=== PATIENT | male | born 1950 | race American Indian/Alaskan Native ===

== ENCOUNTER 2019-07-18 21:15 | Emergency (ER) | payer MEDICARE, OTHER ==
[2019-07-18] MEDS ORDERED: Nitroglycerin 0.4 MG Tab.SL SL ONE (21:22)
[2019-07-18] MEDS ORDERED: Nitroglycerin 0.4 MG Tab.SL ONE (21:23)
[2019-07-18 22:05] LABS: ANION GAP 12.4; CHLORIDE,CL 103 mmol/L (101-111); SODIUM,NA 135 mmol/L (135-145)
--- NOTE | 2019-07-18 22:29 | EDM.PDOC ---
ED HPI GENERAL MEDICAL PROBLEM - General Chief Complaint: Chest Pain Stated Complaint: AMBULANCE Time Seen by Provider: 07/18/19 21:20 Source of Information: Reports: Patient, EMS, RN History Limitations: Reports: No Limitations - History of Present Illness INITIAL COMMENTS - FREE TEXT/NARRATIVE: ED with c/o chest pain intermittent sharp stabbing mid left chest lasts about one minute and goes away. No nausea or vomiting. No fever chills or sweats. Has been hunting today. States no difference in activity than usual. Some belching earlier. Family here note he ate a twinkie earlier and always gives him indigestion. Diabetic blood sugars 110's. No hx of DE or stents. Pain not related to activity, No pain with inspiration. Nitro given x 1 enroute by EMS. States made no difference. Rated 3/10 at worst Pain free at present. Left Chest Pain Score (Numeric/FACES): 3 - Related Data Allergies Allergy/AdvReac Type Severity Reaction Status Date / Time No Known Allergies Allergy Verified 07/18/19 21:52 Home Meds: Home Meds Aspirin [Ken Chewable] 81 mg PO DAILY 12/23/13 [History] Insulin Detemir [Levemir] 25 units SQ BEDTIME 12/23/13 [History] Lisinopril [Prinivil] 40 mg PO DAILY 12/23/13 [History] Gabapentin [Neurontin] 100 mg PO TID 08/09/18 [History] Insulin Detemir [Levemir Flextouch] 60 units SQ ACBREAKFAST 08/09/18 [History] Metoprolol Succinate [Toprol Xl] 50 mg PO DAILY 08/09/18 [History] Omeprazole 20 mg PO DAILY 08/09/18 [History] Pioglitazone [Actos] 30 mg PO DAILY 08/09/18 [History] Terazosin [Hytrin] 1 mg PO DAILY 08/09/18 [History] atorvaSTATin [Lipitor] 10 mg PO BEDTIME 08/09/18 [History] metFORMIN HCl [Metformin HCl] 1,000 mg PO BID 08/09/18 [History] Alogliptin Benzoate [Alogliptin] 25 mg PO DAILY 07/18/19 [History] Past Medical History HEENT History: Reports: Cataract Cardiovascular History: Reports: High Cholesterol, Hypertension Respiratory History: Reports: None Gastrointestinal History: Reports: GERD Genitourinary History: Reports: None Musculoskeletal History: Reports: None Neurological History: Reports: Neuropathy, Diabetic Psychiatric History: Reports: None Endocrine/Metabolic History: Reports: Diabetes, Type II Hematologic History: Reports: None Immunologic History: Reports: None Oncologic (Cancer) History: Reports: None Dermatologic History: Reports: None - Infectious Disease History Infectious Disease History: Reports: Chicken Pox - Past Surgical History HEENT Surgical History: Reports: Cataract Surgery GI Surgical History: Reports: Cholecystectomy Social & Family History - Tobacco Use Smoking Status *Q: Never Smoker - Caffeine Use Caffeine Use: Reports: Coffee, Soda, Tea - Recreational Drug Use Recreational Drug Use: No - Living Situation & Occupation Living situation: Reports: with Family ED ROS GENERAL - Review of Systems Review Of Systems: Comprehensive ROS is negative, except as noted in HPI. ED EXAM, GENERAL - Physical Exam Exam: See Below Exam Limited By: No Limitations General Appearance: Alert, No Apparent Distress Eye Exam: Bilateral Eye: EOMI Ears: Hearing Grossly Normal Nose: Normal Inspection Throat/Mouth: Normal Inspection Head: Atraumatic, Normocephalic Neck: Normal Inspection Respiratory/Chest: No Respiratory Distress, Lungs Clear, Normal Breath Sounds Cardiovascular: Normal Peripheral Pulses, Regular Rate, Rhythm, No Edema, No JVD , No Murmur GI/Abdominal: Normal Bowel Sounds, Soft, Non-Tender Back Exam: Full Range of Motion Extremities: Normal Inspection Neurological: Alert, Oriented, Normal Cognition, No Motor/Sensory Deficits Psychiatric: Normal Affect, Normal Mood Skin Exam: Warm, Dry, Intact, Normal Color Course - Vital Signs Last Recorded V/S: Last Vital Signs Temp 97.2 F 07/18/19 21:16 Pulse 67 07/18/19 21:16 Resp 24 H 07/18/19 21:16 BP 177/66 H 07/18/19 21:16 Pulse Ox 98 07/18/19 21:16 - Orders/Labs/Meds Labs: Laboratory Tests 07/18/19 07/18/19 07/18/19 Range/Units 21:35 21:35 21:35 WBC 7.9 (5.0-10.0) 10^3/uL RBC 4.04 L (4.6-6.2) 10^6/uL Hgb 11.6 L D (14.0-18.0) g/dL Hct 34.1 L (40.0-54.0) % MCV 84.4 (80-100) fL MCH 28.7 (27.0-34.0) pg MCHC 34.0 (33.0-35.0) g/dL Plt Count 218 (150-450) 10^3/uL Neut % (Auto) 62.0 (42.2-75.2) % Lymph % (Auto) 26.7 (20.5-50.1) % [place] % (Auto) 7.0 (2-8) % Eos % (Auto) 3.7 H (1.0-3.0) % Baso % (Auto) 0.6 (0.0-1.0) % Sodium 135 (135-145) mmol/L Potassium 4.4 (3.6-5.0) mmol/L Chloride 103 (101-111) mmol/L Carbon Dioxide 24.0 (21.0-31.0) mmol/L Anion Gap 12.4 BUN 16 (7-18) mg/dL Creatinine 1.2 (0.6-1.3) mg/dL Est Cr Clr Drug Dosing 61.01 mL/min Estimated GFR (MDRD) 60 BUN/Creatinine Ratio 13.33 Glucose 213 H (74-105) mg/dL Calcium 8.6 (8.4-10.2) mg/dl Magnesium 1.6 L (1.8-2.5) mg/dL Total Bilirubin 0.4 (0.2-1.0) mg/dL AST 18 (10-42) IU/L ALT 18 (10-60) IU/L Alkaline Phosphatase 87 (42-121) IU/L CK-MB (CK-2) 2.10 (0.4-4.7) ng/mL Troponin I < 0.02 (0.00-0.02) ng/ml Total Protein 6.7 (6.7-8.2) g/dl Albumin 3.5 (3.2-5.5) g/dl Globulin 3.2 Albumin/Globulin Ratio 1.09 Amylase 31 (28-100) U/L Lipase 28 (22-51) U/L Meds: Medications Discontinued Medications Generic Name Dose Route Start Last Admin Trade Name Freq PRN Reason Stop Dose Admin Nitroglycerin 0.4 mg 07/18/19 21:22 Nitrostat SL 07/18/19 21:23 ONETIME ONE Nitroglycerin Confirm 07/18/19 21:23 Nitrostat Administered 07/18/19 21:24 Dose 0.4 mg .ROUTE .STK-MED ONE Departure - Departure Time of Disposition: 22:29 Disposition: Home, Self-Care 01 Condition: Good Clinical Impression: Hyperglycemia, Hypomagnesemia Gastroesophageal reflux disease Qualifiers: Esophagitis presence: without esophagitis Qualified Code(s): K21.9 - Gastro- esophageal reflux disease without esophagitis Instructions: Food Choices for Gastroesophageal Reflux Disease, Adult, Easy-to- Read, Nonspecific Chest Pain, [id number] Forms: ED Department Discharge Additional Instructions: bland low fat diet clinic follow up this week Urgent follow up recurrent chest pain with nausea, sweats, or Shortness of breath or aggravated by activity continue home medication
== END 2019-07-18 22:45 | disposition home or self-care (01) ==
LOC: DL.ED 21:15
DX: K21.9 Gastro-esophageal reflux disease without esophagitis (principal); E11.65 Type 2 diabetes mellitus with hyperglycemia; E83.42 Hypomagnesemia; I10 Essential (primary) hypertension; E11.40 Type 2 diabetes mellitus with diabetic neuropathy, unspecified; Z79.82 Long term (current) use of aspirin; Z79.4 Long term (current) use of insulin; Z79.899 Other long term (current) drug therapy
CPT/HCPCS: 36415; 71045; 80053; 82150; 82553; 83690; 83735; 84484; 85025; 93005; 99283; 99285-25

== ENCOUNTER 2021-05-13 13:42 | Emergency (ER) | payer MEDICARE, OTHER | END 2021-05-13 14:10 | disposition left against medical advice (07) | LOC: DL.ED 13:42 | DX: Z53.21 Procedure and treatment not carried out due to patient leaving prior to being seen by health care provider (principal) ==

== ENCOUNTER 2021-06-01 15:03 | Emergency (ER) | payer MEDICARE, OTHER ==
--- NOTE | 2021-06-01 15:30 | EDM.PDOC ---
ED HPI GENERAL MEDICAL PROBLEM - General Stated Complaint: SPLK - AMBULANCE Time Seen by Provider: 06/01/21 15:25 Source of Information: Reports: Patient, EMS, RN, RN Notes Reviewed History Limitations: Reports: No Limitations - History of Present Illness INITIAL COMMENTS - FREE TEXT/NARRATIVE: Raya is a 70 y/o male who presents to the ED via [facility] with complaints of pre-syncope. Per EMS report, the patient was found laying on the floor by his son. He denies loss of consciousness and did not strike his head, he states he just felt weak. The patient was diagnosed with COVID-19 two weeks ago following symptoms of cough. Currently he notes cough, nausea, two bouts of emesis today, and one bout of diarrhea. He denies fever, shaking chills, vision changes, dizziness, chest pain/pressure, palpitations, abdominal pain, hematemesis, dysuria, hematuria, melena, or hematochezia. The patient denies tobacco, alcohol, or recreational drug use. - Related Data Allergies Allergy/AdvReac Type Severity Reaction Status Date / Time No Known Allergies Allergy Verified 06/02/21 11:38 Home Meds: Home Meds Insulin Detemir [Levemir] 10 units SQ BEDTIME 12/23/13 [History] lisinopriL [Prinivil] 40 mg PO DAILY 12/23/13 [History] Gabapentin [Neurontin] 100 mg PO TID 08/09/18 [History] Insulin Detemir [Levemir Flextouch] 60 units SQ ACBREAKFAST 08/09/18 [History] Metoprolol Succinate [Toprol Xl] 50 mg PO DAILY 08/09/18 [History] Omeprazole 20 mg PO DAILY 08/09/18 [History] Pioglitazone [Actos] 30 mg PO DAILY 08/09/18 [History] atorvaSTATin [Lipitor] 10 mg PO BEDTIME 08/09/18 [History] metFORMIN HCl [Metformin HCl] 1,000 mg PO BID 08/09/18 [History] Alogliptin Benzoate [Alogliptin] 25 mg PO DAILY 07/18/19 [History] Amoxicillin/Clavulanate K [Augmentin 875-125 MG] 1 tab PO BID 06/02/21 [History] Aspirin [Aspirin EC] 81 mg PO DAILY 06/02/21 [History] Azithromycin [Zithromax] 250 mg PO DAILY 06/02/21 [History] Empagliflozin [Jardiance] 10 mg PO .MORNING 06/02/21 [History] Semaglutide [Ozempic] 0.5 mg SQ .WEEKLY 06/02/21 [History] amLODIPine Besylate [Amlodipine Besylate] 10 mg PO DAILY 06/02/21 [History] Past Medical History HEENT History: Reports: Cataract Cardiovascular History: Reports: High Cholesterol, Hypertension Respiratory History: Reports: None Gastrointestinal History: Reports: GERD Genitourinary History: Reports: None Musculoskeletal History: Reports: None Neurological History: Reports: Neuropathy, Diabetic Psychiatric History: Reports: None Endocrine/Metabolic History: Reports: Diabetes, Type II Hematologic History: Reports: None Immunologic History: Reports: None Oncologic (Cancer) History: Reports: None Dermatologic History: Reports: None - Infectious Disease History Infectious Disease History: Reports: Chicken Pox - Past Surgical History HEENT Surgical History: Reports: Cataract Surgery GI Surgical History: Reports: Cholecystectomy Social & Family History - Caffeine Use Caffeine Use: Reports: Coffee, Soda, Tea - Living Situation & Occupation Living situation: Reports: with Family ED ROS GENERAL - Review of Systems Review Of Systems: Comprehensive ROS is negative, except as noted in HPI. ED EXAM, GENERAL - Physical Exam Exam: See Below Exam Limited By: No Limitations General Appearance: Alert Eye Exam: Bilateral Eye: EOMI, Normal Inspection, PERRL (3mm) Ears: Normal External Exam Ear Exam: Bilateral Ear: Auricle Normal, Canal Normal, TM normal Nose: Normal Inspection, Normal Mucosa, No Blood Throat/Mouth: Normal Voice, No Airway Compromise. No: Normal Inspection, Normal Oropharynx (Dry mucous membranes) Head: Atraumatic, Normocephalic Neck: Normal Inspection, Supple, Non-Tender, Full Range of Motion. No: Lymphadenopathy (L), Lymphadenopathy (R) Respiratory/Chest: No Respiratory Distress, Rales (To right), Accessory Muscle Use. No: Chest Non-Tender (With deep inspiration), Crackles, Rhonchi, Wheezing, Stridor Cardiovascular: Normal Peripheral Pulses, Regular Rate, Rhythm, No Edema, No Gallop, No JVD, No Murmur, No Rub Peripheral Pulses: 2+: Radial (L), Radial (R) GI/Abdominal: Normal Bowel Sounds, Soft, Non-Tender, No Distention, No Abnormal Bruit, No Mass, Pelvis Stable (Male) Exam: Deferred Rectal (Males) Exam: Deferred Back Exam: Normal Inspection, Full Range of Motion Extremities: Normal Inspection, Normal Range of Motion, Normal Capillary Refill Neurological: Alert, Oriented, CN II-XII Intact, Normal Cognition, Normal Gait, No Motor/Sensory Deficits Psychiatric: Normal Affect, Normal Mood Skin Exam: Warm, Dry, Intact, Normal Color, No Rash. No: Cyanosis, Jaundice, Mottled, Pallor #1 Interpretation EKG Date: 06/01/21 Time: 15:09 Rhythm: Other (Sinus Tachycardia) Rate (Beats/Min): 101 [place]: LAD-Left [place] Deviation P-Wave: Present QRS: RBBB ST-T: Normal QT: Normal AR/PQ Interval: 0.131 Comparison: No Change EKG Interpretation Comments: ST; RBBB; LAD; No evidence of acute myocardial ischemia Course - Vital Signs Last Recorded V/S: Last Vital Signs Temp 98.0 F 06/01/21 14:52 Pulse 97 06/01/21 14:52 Resp 22 H 06/01/21 14:52 BP 115/57 L 06/01/21 14:52 Pulse Ox 97 06/01/21 14:52 - Orders/Labs/Meds Labs: Laboratory Tests 06/01/21 06/01/21 06/01/21 Range/Units 15:20 15:20 15:20 WBC 17.8 H (5.0-10.0) 10^3/uL RBC 4.15 L (4.6-6.2) 10^6/uL Hgb 12.1 L (14.0-18.0) g/dL Hct 36.3 L (40.0-54.0) % MCV 87.5 D (80-100) fL MCH 29.2 (27.0-34.0) pg MCHC 33.3 (33.0-35.0) g/dL Plt Count 275 (150-450) 10^3/uL Neut % (Auto) 90.4 H (42.2-75.2) % Lymph % (Auto) 3.7 L (20.5-50.1) % [place] % (Auto) 5.6 (2-8) % Eos % (Auto) 0.2 L (1.0-3.0) % Baso % (Auto) 0.1 (0.0-1.0) % PT 11.0 (9.0-12.0) SEC INR 1.1 (0.9-1.2) APTT 21.6 L (22.0-34.0) SEC D-Dimer, Quantitative 1020 H (0-400) ng/mL Sodium 143 (136-145) mmol/L Potassium 3.8 (3.5-5.1) mmol/L Chloride 106 (98-107) mmol/L Carbon Dioxide 25 (21-32) mmol/L Anion Gap 15.8 H (7-13) mEq/L BUN 28 H (7-18) mg/dL Creatinine 1.55 H (0.70-1.30) mg/dL Est Cr Clr Drug Dosing 43.08 mL/min Estimated GFR (MDRD) 44 BUN/Creatinine Ratio 18.1 (No establ ref range) Glucose 119 H (70-99) mg/dL POC Glucose (70-99) mg/dL Lactic Acid (0.4-2.0) mmol/L Calcium 8.4 L (8.5-10.1) mg/dL Magnesium 1.8 (1.8-2.4) mg/dL Total Bilirubin 0.3 (0.2-1.0) mg/dL AST 18 (15-37) U/L ALT 28 (16-63) U/L Alkaline Phosphatase 101 (46-116) U/L Troponin I High Sens 7 (<=76) pg/mL C-Reactive Protein < 0.2 (0.0-0.9) mg/dL B-Natriuretic Peptide 21 (0-100) pg/ml Total Protein 7.4 (6.4-8.2) g/dL Albumin 3.5 (3.4-5.0) g/dL Globulin 3.9 Albumin/Globulin Ratio 0.9 Ethyl Alcohol < 3 (0) mg/dL 06/01/21 06/01/21 06/01/21 Range/Units 15:20 15:27 18:30 WBC (5.0-10.0) 10^3/uL RBC (4.6-6.2) 10^6/uL Hgb (14.0-18.0) g/dL Hct (40.0-54.0) % MCV (80-100) fL MCH (27.0-34.0) pg MCHC (33.0-35.0) g/dL Plt Count (150-450) 10^3/uL Neut % (Auto) (42.2-75.2) % Lymph % (Auto) (20.5-50.1) % [place] % (Auto) (2-8) % Eos % (Auto) (1.0-3.0) % Baso % (Auto) (0.0-1.0) % PT (9.0-12.0) SEC INR (0.9-1.2) APTT (22.0-34.0) SEC D-Dimer, Quantitative (0-400) ng/mL Sodium (136-145) mmol/L Potassium (3.5-5.1) mmol/L Chloride (98-107) mmol/L Carbon Dioxide (21-32) mmol/L Anion Gap (7-13) mEq/L BUN (7-18) mg/dL Creatinine (0.70-1.30) mg/dL Est Cr Clr Drug Dosing mL/min Estimated GFR (MDRD) BUN/Creatinine Ratio (No establ ref range) Glucose (70-99) mg/dL POC Glucose 109 H (70-99) mg/dL Lactic Acid 2.1 H* 1.5 (0.4-2.0) mmol/L Calcium (8.5-10.1) mg/dL Magnesium (1.8-2.4) mg/dL Total Bilirubin (0.2-1.0) mg/dL AST (15-37) U/L ALT (16-63) U/L Alkaline Phosphatase (46-116) U/L Troponin I High Sens (<=76) pg/mL C-Reactive Protein (0.0-0.9) mg/dL B-Natriuretic Peptide (0-100) pg/ml Total Protein (6.4-8.2) g/dL Albumin (3.4-5.0) g/dL Globulin Albumin/Globulin Ratio Ethyl Alcohol (0) mg/dL Meds: Medications Discontinued Medications Generic Name Dose Route Start Last Admin Trade Name Freq PRN Reason Stop Dose Admin Ceftriaxone Sodium 1 gm/ 50 mls @ 100 mls/hr 06/01/21 16:38 06/01/21 17:32 Sodium Chloride IV 06/01/21 17:07 100 mls/hr ONETIME ONE Administration Lactated Ringer's 1,000 mls @ 999 mls/hr 06/01/21 17:17 06/01/21 17:32 Ringers, Lactated IV 06/01/21 18:17 999 mls/hr .BOLUS ONE Administration Iopamidol 100 ml 06/01/21 17:35 06/01/21 17:50 Iopamidol 755 Mg/Ml 100 Ml Bottle IVPUSH 06/01/21 17:36 100 ml ONETIME ONE Administration - Radiology Interpretation Free Text/Narrative:: [facility] Final Radiology Report Call: [phone] assistance Online chat: [email or web address] Name: RAYA SALDIVAR Age: 70Years M Date: 06/01/2021 SSN: -- : [id number] Study: CR CHEST 1V FRONTAL Requesting Physician: Devorah Hennessy Images: 1 Addl Studies: Provided Clinical History: cough Contrast: Contrast Medium: Contrast Amount: Contrast Method: CONFIDENTIALITY STATEMENT This report is intended only for use by the referring physician, and only in accordance with law. If you received this in error, call [phone]. Page 1 of 1 PROCEDURE INFORMATION: Exam: XR Chest Exam date and time: 06/01/2021 4:01 PM Age: 70 years old Clinical indication: Other: Covid + 3 weeks ago; Additional info: Cough TECHNIQUE: Imaging protocol: XR of the chest. Views: 1 view. COMPARISON: CR Chest 1V Frontal 07/18/2019 9:54 PM FINDINGS: Lungs: Right lower lobe consolidation. Lungs otherwise clear. Pleural spaces: Unremarkable. No pleural effusion. No pneumothorax. Heart/Mediastinum: Unremarkable. No cardiomegaly. Bones/joints: Unremarkable. IMPRESSION: Right lower lobe pneumonia. Thank you for allowing us to participate in the care of your patient. Dictated and Authenticated by: Ken Valencia MD 06/01/2021 4:30 PM Central Time ([place] & [place]) [facility] Final Radiology Report Call: [phone] assistance Online chat: [email or web address] Name: RAYA SALDIVAR Age: 70Years M Date: 06/01/2021 SSN: -- : 1950 Study: CT CHEST W CONT Requesting Physician: Devorah Hennessy Images: [phone] Addl Studies: Provided Clinical History: r/o PE; COVID + two weeks ago; Ddimer 1100+ Contrast: With Contrast Medium: Contrast Amount: 76 mL Contrast Method: Intravenous (IV) Page 1 of 2 PROCEDURE INFORMATION: Exam: CT Chest With Contrast; Diagnostic Exam date and time: 06/01/2021 6:09 PM Age: 70 years old Clinical indication: Other: Pre-syncope, left anterior chest pain wiyh inspiration--wbc 17.8; Additional info: R/O pe; Covid + two weeks ago; Ddimer 1100+ TECHNIQUE: Imaging protocol: Diagnostic computed tomography of the chest with contrast. Radiation optimization: All CT scans at this facility use at least one of these dose optimization techniques: automated exposure control; mA and/or kV adjustment per patient size (includes targeted exams where dose is matched to clinical indication); or iterative reconstruction. Contrast material: [id number]; Contrast volume: 76 ml; Contrast route: INTRAVENOUS (IV); COMPARISON: CR Chest 1V Frontal 06/01/2021 4:01 PM FINDINGS: Lungs: The extensive consolidation in the right middle lobe with patchy consolidation in the right lower lobe. Pleural spaces: Unremarkable. No pneumothorax. No pleural effusion. Heart: Unremarkable. No cardiomegaly. No pericardial effusion. Aorta: Unremarkable. No aortic aneurysm. Lymph nodes: Unremarkable. No enlarged lymph nodes. Bones/joints: Unremarkable. No acute fracture. Soft tissues: Unremarkable. IMPRESSION: 1. Right middle lobe and right lower lobe bronchopneumonia. 2. No evidence of acute PE. Thank you for allowing us to participate in the care of your patient. Dictated and Authenticated by: Ken Valencia MD 06/01/2021 6:37 PM Central Time ([place] & [place]) - Re-Assessments/Exams Free Text/Narrative Re-Assessment/Exam: 06/01/21 1L LR bolus initiated. CXR obtained while labs pending. D-dimer elevated, will obtain PE study given recent diagnosis of COVID with shortness of breath and chest pain. Rocephin 1gm administered for RLL pneumonia. Findings of examination, lab work, and imaging reviewed with patient. Will treat pneumonia with azithromycin and Augmentin. Supportive cares for shortness of breath and nausea discussed. Patient instructed to follow up with primary care provider in 2-3 days regarding todays visit. Red flag signs and symptoms which would warrant immediate reevaluation reviewed. Patient verbalized understanding and agreement with the plan of care. Departure - Departure Time of Disposition: 18:48 Disposition: Home, Self-Care 01 Condition: Fair Clinical Impression: Community acquired bacterial pneumonia Instructions: Community-Acquired Pneumonia, Adult Referrals: PCP,None [Primary Care Provider] - Forms: ED Department Discharge Additional Instructions: Rx: azithromycin Rx: Augmentin 1.) Start your antibiotics tonight and continue until gone, even as symptoms improve. 2.) Drink small frequent sips of water to stay hydrated. 3.) Eat small frequent meals to avoid nausea. Avoid spicy, greasy, high-fat foods. 4.) Follow up with your primary care provider in 3-4 days, or return to the emergency department should symptoms worsen over the weekend.
[2021-06-01 15:44] LABS: PTT,PARTIAL THROMBOPLSTIN TIME 21.6 SEC (22.0-34.0)
[2021-06-01 15:48] LABS: ANION GAP 15.8 mEq/L (7-13); CHLORIDE,CL 106 mmol/L (98-107); SODIUM,NA 143 mmol/L (136-145)
--- NOTE | 2021-06-01 16:31 | CR ---
PROCEDURE INFORMATION: Exam: XR Chest Exam date and time: 06/01/2021 4:01 PM Age: 70 years old Clinical indication: Other: Covid + 3 weeks ago; Additional info: Cough TECHNIQUE: Imaging protocol: XR of the chest. Views: 1 view. COMPARISON: CR Chest 1V Frontal 07/18/2019 9:54 PM FINDINGS: Lungs: Right lower lobe consolidation. Lungs otherwise clear. Pleural spaces: Unremarkable. No pleural effusion. No pneumothorax. Heart/Mediastinum: Unremarkable. No cardiomegaly. Bones/joints: Unremarkable. IMPRESSION: Right lower lobe pneumonia.
[2021-06-01] MEDS ORDERED: cefTRIAXone 1 GM in Sodium Chloride 0.9% 50 ML IV ONE (16:38)
[2021-06-01] MEDS ORDERED: Lactated Ringers 1,000 ML IV ONE (17:17)
[2021-06-01] MEDS ORDERED: Iopamidol 755 Mg/ML 100 ML Bottle IVPUSH ONE (17:35)
--- NOTE | 2021-06-01 18:37 | CT ---
PROCEDURE INFORMATION: Exam: CT Chest With Contrast; Diagnostic Exam date and time: 06/01/2021 6:09 PM Age: 70 years old Clinical indication: Other: Pre-syncope, left anterior chest pain wiyh inspiration--wbc 17.8; Additional info: R/O pe; Covid + two weeks ago; Ddimer 1100+ TECHNIQUE: Imaging protocol: Diagnostic computed tomography of the chest with contrast. Radiation optimization: All CT scans at this facility use at least one of these dose optimization techniques: automated exposure control; mA and/or kV adjustment per patient size (includes targeted exams where dose is matched to clinical indication); or iterative reconstruction. Contrast material: [id number]; Contrast volume: 76 ml; Contrast route: INTRAVENOUS (IV); COMPARISON: CR Chest 1V Frontal 06/01/2021 4:01 PM FINDINGS: Lungs: The extensive consolidation in the right middle lobe with patchy consolidation in the right lower lobe. Pleural spaces: Unremarkable. No pneumothorax. No pleural effusion. Heart: Unremarkable. No cardiomegaly. No pericardial effusion. Aorta: Unremarkable. No aortic aneurysm. Lymph nodes: Unremarkable. No enlarged lymph nodes. Bones/joints: Unremarkable. No acute fracture. Soft tissues: Unremarkable. IMPRESSION: 1. Right middle lobe and right lower lobe bronchopneumonia. 2. No evidence of acute PE.
--- NOTE | 2021-06-02 10:07 | PCM.SN.2 ---
- Free Text/Narrative Note: 06/02/810 [employer] notified of positive blood cultures with gram positive cocci in clusters and chains. [employer] P[employer]der called patient and discussed need for reevaluation and likely hospitalization given bacteremia. Patient verbalized understanding and agreement with the plan of care. Patient states he will present to the ED shortly. Time Documentation
== END 2021-06-01 19:03 | disposition home or self-care (01) ==
LOC: DL.ED 15:03
DX: J18.9 Pneumonia, unspecified organism (principal); I45.10 Unspecified right bundle-branch block; E78.00 Pure hypercholesterolemia, unspecified; I10 Essential (primary) hypertension; K21.9 Gastro-esophageal reflux disease without esophagitis; E11.40 Type 2 diabetes mellitus with diabetic neuropathy, unspecified; Z79.4 Long term (current) use of insulin; Z79.82 Long term (current) use of aspirin; Z79.899 Other long term (current) drug therapy
CPT/HCPCS: 36415; 71045; 71260; 80053; 80307; 82947; 83605; 83735; 83880; 84484; 85025; 85379; 85610; 85730; 86140; 87040; 87077; 93005; 96365; 99285; J0696; J7120; Q9967

== ENCOUNTER 2023-04-27 18:33 | Emergency (ER) | payer MEDICARE, OTHER ==
[2023-04-27] MEDS: Sodium Chloride 0.9% 10 ML Syringe FLUSH PRN ×2 (19:01→20:04)
[2023-04-27 19:05] LABS: BASOPHILS PERCENT AUTO 0.2 % (0.0-1.0); EOSINOPHILS PERCENT AUTO 0.5 % (1.0-3.0); HEMATOCRIT 38.9 % (40.0-54.0); HEMOGLOBIN 13.1 g/dL (14.0-18.0); LYMPHOCYTES PERCENT AUTO 4.3 % (20.5-50.1); MEAN CORPUSCULAR HEMOGLOBIN 29.4 pg (27.0-34.0); MEAN CORPUSCULAR HGB CONC 33.7 g/dL (33.0-35.0); MEAN CORPUSCULAR VOLUME 87.4 fL (80-100); MONOCYTES PERCENT AUTO 2.4 % (2-8); NEUTROPHILS PERCENT AUTO 92.6 % (42.2-75.2); PLATELET COUNT,PLT 251 10^3/uL (150-450); RED BLOOD CELL COUNT 4.45 10^6/uL (4.6-6.2); WHITE BLOOD CELL COUNT,WBC 13.1 10^3/uL (5.0-10.0)
[2023-04-27 19:25] LABS: PROTHROMBIN TIME 10.1 SEC (9.0-12.0); PTT,PARTIAL THROMBOPLSTIN TIME 25.1 SEC (22.0-34.0)
[2023-04-27 19:29] LABS: LACTIC ACID 1.3 mmol/L (0.4-2.0)
[2023-04-27 19:32] LABS: A/G RATIO 0.9; ALBUMIN 3.6 g/dL (3.4-5.0); ANION GAP 17.3 mEq/L (7-13); BILIRUBIN TOTAL 0.5 mg/dL (0.2-1.0); BUN/CREATININE RATIO 21.6 (No establ ref range); C-REACTIVE PROTEIN 0.87 ng/dL (<=0.30); CALCIUM 8.5 mg/dL (8.5-10.1); CREATININE 1.71 mg/dL (0.70-1.30); EST CRCL DRUG DOSING (CG) 41.6 mL/min; MAGNESIUM 2.2 mg/dL (1.8-2.4); POTASSIUM,K 4.3 mmol/L (3.5-5.1); PROTEIN TOTAL,TP 7.8 g/dL (6.4-8.2)
[2023-04-27] MEDS ORDERED: Famotidine 20 MG/2 ML SDV IVPUSH ONE (19:55)
[2023-04-27 20:16] LABS: APPEARANCE,URINE CLEAR (CLEAR); BILIRUBIN,URINE NEGATIVE (NEGATIVE); COLOR,URINE YELLOW (YELLOW); GLUCOSE,URINE 500 (NEGATIVE); KETONES,URINE NEGATIVE (NEGATIVE); LEUKOCYTE ESTERASE,URINE NEGATIVE (NEGATIVE); NITRITE,URINE NEGATIVE (NEGATIVE); OCCULT BLOOD,URINE NEGATIVE (NEGATIVE); PH,URINE 5.5 (5.0-9.0); PROTEIN,URINE 30 (NEGATIVE); UROBILINOGEN,URINE 0.2 mg/dL (0.2-1.0)
[2023-04-27 20:19] LABS: BACTERIA,URINE RARE /HPF (0-FEW/HPF); EPITHELIAL CELLS,URINE RARE /HPF (NOT SEEN); RBC,URINE 0-5 /HPF (0-5); WBC,URINE 0-5 /HPF (0-5/HPF)
== END 2023-04-27 20:55 | disposition home or self-care (01) ==
LOC: DL.ED 18:33
DX: E86.0 Dehydration (principal); K52.9 Noninfective gastroenteritis and colitis, unspecified; E11.22 Type 2 diabetes mellitus with diabetic chronic kidney disease; I12.9 Hypertensive chronic kidney disease with stage 1 through stage 4 chronic kidney disease, or unspecified chronic kidney disease; N18.31 Chronic kidney disease, stage 3a; M19.012 Primary osteoarthritis, left shoulder; E78.00 Pure hypercholesterolemia, unspecified; I10 Essential (primary) hypertension; Z86.16 Personal history of COVID-19; Z20.822 Contact with and (suspected) exposure to COVID-19; Z79.82 Long term (current) use of aspirin; Z79.4 Long term (current) use of insulin; Z79.84 Long term (current) use of oral hypoglycemic drugs; Z79.899 Other long term (current) drug therapy
CPT/HCPCS: 36415; 71045; 73030-RT; 80053; 81001; 82947; 83605; 83735; 84145; 84484; 85025; 85610; 85730; 86140; 86788; 87040; 87804; 93005; 93010; 96374; 99284; 99285-25; J3490; U0002